=== PATIENT | male | born 1975 | race African-American/Black ===

== ENCOUNTER 2017-05-01 01:24 | Emergency (ER) | payer OTHER ==
[2017-05-01] MEDS: NS 1,000 ML IV (02:48)
[2017-05-01] MEDS: KETOROLAC 30 MG/ML VIAL (J1885) IV (02:49)
[2017-05-01] MEDS: MORPHINE 4 MG/ML 1ML VIAL (J2270) IV (02:49)
[2017-05-01 02:50] LABS: BASO # 0.1 10^3/uL (0.0-0.2); BASO % 0.6 % (0.0-1.0); EOS # 0.1 10^3/uL (0.0-0.50); EOS % 0.8 % (0.0-3.0); HEMATOCRIT 40.8 % (42.0-52.0); HEMOGLOBIN 13.7 g/dl (14.0-18.0); IMMATURE GRANULOCYTE % 0.2 % (0-3.0); LYMPH # 0.9 10^3/uL (1.5-4.5); LYMPH % 9.2 % (24.0-44.0); MEAN CORPUSCULAR HEMOGLOBIN 30.6 pg (27.0-33.0); MEAN CORPUSCULAR HGB CONC 33.6 g/dl (32.0-36.5); MEAN CORPUSCULAR VOLUME 91.3 fl (80.0-96.0); MONO # 0.7 10^3/uL (0.0-0.8); MONO % 7.5 % (0.0-5.0); NEUTROPHILS # 8.1 10^3/uL (1.8-7.7); NEUTROPHILS % 81.7 % (36.0-66.0); PLATELET COUNT, AUTOMATED 246 10^3/uL (150-450); RED BLOOD COUNT 4.47 10^6/uL (4.30-6.10); RED CELL DISTRIBUTION WIDTH 11.5 % (11.5-14.5); WHITE BLOOD COUNT 9.9 10^3/uL (4.0-10.0)
[2017-05-01 03:15] LABS: ALBUMIN 4.2 GM/DL (3.2-5.2); ALBUMIN/GLOBULIN RATIO 1.31 (1.00-1.93); ALKALINE PHOSPHATASE 122 U/L (45-117); ALT/SGPT 43 U/L (12-78); ANION GAP 8 MEQ/L (8-16); AST/SGOT 36 U/L (7-37); BILIRUBIN,DIRECT 0.1 MG/DL (0.0-0.2); BILIRUBIN,TOTAL 0.5 MG/DL (0.2-1.0); BLOOD UREA NITROGEN 21 MG/DL (7-18); CALCIUM LEVEL 8.7 MG/DL (8.5-10.1); CARBON DIOXIDE LEVEL 26 MEQ/L (21-32); CHLORIDE LEVEL 109 MEQ/L (98-107); CREATININE FOR GFR 1.81 MG/DL (0.70-1.30); GLOMERULAR FILTRATION RATE 53.6 (>60); GLUCOSE, FASTING 114 MG/DL (70-100); LIPASE 205 U/L (73-393); POTASSIUM SERUM 3.9 MEQ/L (3.5-5.1); SODIUM LEVEL 143 MEQ/L (136-145); TOTAL PROTEIN 7.4 GM/DL (6.4-8.2)
[2017-05-01 05:35] LABS: AMORPHOUS SEDIMENT RFX SMALL (NEGATIVE); KETONE, URINE AUTO RFX NEGATIVE (NEGATIVE); LEUKOCYTE ESTERASE UR AUTO RFX NEGATIVE (NEGATIVE); NITRITE, URINE AUTO RFX NEGATIVE (NEGATIVE); RBC, URINE AUTO RFX 61 /HPF (0-3); SPECIFIC GRAVITY UR AUTO RFX 1.019 (1.002-1.035); SQUAM EPITHELIAL CELL UR AURFX 0 /HPF (0-6); WBC, URINE AUTO RFX 2 /HPF (0-3)
[2017-05-01] MEDS: TAMSULOSIN 0.4 MG CAP PO (07:05)
== END 2017-05-01 07:19 | disposition home or self-care (01) ==
LOC: M ED 01:24
DX: N20.1 Calculus of ureter (principal); Z79.899 Other long term (current) drug therapy; Z88.8 Allergy status to other drugs, medicaments and biological substances
CPT/HCPCS: J2270

== ENCOUNTER 2017-05-02 07:53 | Emergency (ER) | payer OTHER ==
[2017-05-02] MEDS: MORPHINE 4 MG/ML 1ML VIAL (J2270) IV ×2 (09:00→10:36)
[2017-05-02 09:27] LABS: BASO # 0.1 10^3/uL (0.0-0.2); BASO % 0.4 % (0.0-1.0); EOS % 0.1 % (0.0-3.0); HEMATOCRIT 40.1 % (42.0-52.0); HEMOGLOBIN 13.4 g/dl (14.0-18.0); IMMATURE GRANULOCYTE % 0.3 % (0-3.0); LYMPH # 1.1 10^3/uL (1.5-4.5); LYMPH % 8.1 % (24.0-44.0); MEAN CORPUSCULAR HEMOGLOBIN 30.7 pg (27.0-33.0); MEAN CORPUSCULAR HGB CONC 33.4 g/dl (32.0-36.5); MEAN CORPUSCULAR VOLUME 91.8 fl (80.0-96.0); MONO # 0.9 10^3/uL (0.0-0.8); MONO % 6.8 % (0.0-5.0); NEUTROPHILS # 11.4 10^3/uL (1.8-7.7); NEUTROPHILS % 84.3 % (36.0-66.0); PLATELET COUNT, AUTOMATED 244 10^3/uL (150-450); RED BLOOD COUNT 4.37 10^6/uL (4.30-6.10); RED CELL DISTRIBUTION WIDTH 11.3 % (11.5-14.5); WHITE BLOOD COUNT 13.5 10^3/uL (4.0-10.0)
[2017-05-02 09:43] LABS: APPEARANCE, URINE CLEAR (CLEAR); BACTERIA, URINE AUTO NEGATIVE (NEGATIVE); BILIRUBIN, URINE AUTO NEGATIVE (NEGATIVE); BLOOD, URINE BLOOD 3+ (NEGATIVE); COLOR, URINE YELLOW (YELLOW); GLUCOSE, URINE (UA) AUTO NEGATIVE (NEGATIVE); KETONE, URINE AUTO NEGATIVE (NEGATIVE); LEUKOCYTE ESTERASE, URINE AUTO NEGATIVE (NEGATIVE); MUCUS, URINE SMALL (NEGATIVE); NITRITE, URINE AUTO NEGATIVE (NEGATIVE); PROTEIN, URINE AUTO NEGATIVE (NEGATIVE); RBC, URINE AUTO 35 /HPF (0-3); SPECIFIC GRAVITY URINE AUTO 1.013 (1.002-1.035); SQUAMOUS EPITHELIAL CELL UR AU 0 /HPF (0-6); UROBILINOGEN, URINE AUTO 0.2 mg/dL (0.0-2.0); WBC, URINE AUTO 3 /HPF (0-3)
[2017-05-02 09:44] LABS: ANION GAP 9 MEQ/L (8-16); BLOOD UREA NITROGEN 18 MG/DL (7-18); CALCIUM LEVEL 8.7 MG/DL (8.5-10.1); CARBON DIOXIDE LEVEL 23 MEQ/L (21-32); CHLORIDE LEVEL 108 MEQ/L (98-107); CREATININE FOR GFR 1.97 MG/DL (0.70-1.30); GLOMERULAR FILTRATION RATE 48.6 (>60); GLUCOSE, FASTING 105 MG/DL (70-100); POTASSIUM SERUM 4.1 MEQ/L (3.5-5.1); SODIUM LEVEL 140 MEQ/L (136-145)
[2017-05-02] MEDS: NS 1,000 ML IV (12:00)
[2017-05-02] MEDS: HYDROmorphone HCL 1 MG/ML SYRINGE (J1170) IV (12:42)
== END 2017-05-02 13:28 | disposition home or self-care (01) ==
LOC: M ED 07:53
DX: N20.1 Calculus of ureter (principal); I10 Essential (primary) hypertension; K59.00 Constipation, unspecified; D64.9 Anemia, unspecified; N17.9 Acute kidney failure, unspecified; E78.5 Hyperlipidemia, unspecified; R56.9 Unspecified convulsions; G47.30 Sleep apnea, unspecified; F43.10 Post-traumatic stress disorder, unspecified; Z79.899 Other long term (current) drug therapy; Z88.8 Allergy status to other drugs, medicaments and biological substances
CPT/HCPCS: J1170

== ENCOUNTER 2018-11-24 15:49 | Emergency (ER) | payer OTHER ==
[~2018-11-24] VITALS: Ht 188 cm; Wt 182.7 kg
[~2018-11-24 15:49] MED LIST: ATOR40TA75 PO; BUSP15TA47 PO; CHLO125TA; CHOL100013; DILA8TAB5 PO; FLOM0.4C39 PO; FLUO20CA19; HYDR1TAB33 GT; KEFL500C17 PO; MICA80TA; MIRT45TA4; NAPR-885 PO; NIFE30TA50; PERC5TAB12 PO; QUET5TAB; TOPI200T7; TRAM-533
[2018-11-24] MEDS ORDERED: CLON1TAB17 PO (16:14)
[2018-11-24] MEDS ORDERED: APAP325T4 PO (16:14)
[2018-11-24] MEDS ORDERED: ATOR1TAB19 PO (16:14)
[2018-11-24] MEDS ORDERED: FLUO20CA8 PO (16:14)
[2018-11-24] MEDS ORDERED: GEOD40CA13 PO (16:15)
[2018-11-24] MEDS ORDERED: MIRT1TAB16 PO (16:15)
[2018-11-24 16:51] LABS: HEMATOCRIT 44.5 % (42.0-52.0); HEMOGLOBIN 14.5 g/dl (13.5-17.5); MEAN CORPUSCULAR HEMOGLOBIN 31.8 pg (27.0-33.0); MEAN CORPUSCULAR HGB CONC 32.6 g/dl (32.0-36.5); MEAN CORPUSCULAR VOLUME 97.6 fl (80.0-96.0); PLATELET COUNT, AUTOMATED 267 10^3/uL (150-450); RED BLOOD COUNT 4.56 10^6/uL (4.30-6.10); WHITE BLOOD COUNT 6.7 10^3/uL (4.0-10.0)
[2018-11-24] MEDS ORDERED: TOPI200T7 PO (16:54)
[2018-11-24 17:11] LABS: ACETAMINOPHEN LEVEL < 2.0 UG/ML (10.0-30.0); ALBUMIN 3.7 GM/DL (3.2-5.2); ALT/SGPT 57 U/L (12-78); BILIRUBIN,DIRECT 0.1 MG/DL (0.0-0.2); BILIRUBIN,TOTAL 0.4 MG/DL (0.2-1.0); BLOOD UREA NITROGEN 12 MG/DL (7-18); CALCIUM LEVEL 8.7 MG/DL (8.5-10.1); CARBON DIOXIDE LEVEL 20 MEQ/L (21-32); CHLORIDE LEVEL 114 MEQ/L (98-107); CREATININE FOR GFR 1.32 MG/DL (0.70-1.30); ETHYL ALCOHOL (ETHANOL) < 0.003 % (0.000-0.010); GLOMERULAR FILTRATION RATE > 60.0 (>60); GLUCOSE, FASTING 116 MG/DL (70-100); POTASSIUM SERUM 4.2 MEQ/L (3.5-5.1); SALICYLATE LEVEL < 1.7 MG/DL (5.0-30.0); SODIUM LEVEL 141 MEQ/L (136-145); THYROID STIMULATING HORMONE 0.993 uIU/ML (0.358-3.740); TOTAL PROTEIN 7.2 GM/DL (6.4-8.2)
[2018-11-24 18:03] LABS: AMPHETAMINES LEVEL URINE NEGATIVE (NEGATIVE); BARBITURATES URINE NEGATIVE (NEGATIVE); BENZODIAZEPINES URINE NEGATIVE (NEGATIVE); CANNABINOIDS URINE NEGATIVE (NEGATIVE); COCAINE METABOLITE URINE NEGATIVE (NEGATIVE); METHADONE URINE NEGATIVE (NEGATIVE); OPIATES URINE NEGATIVE (NEGATIVE); PHENCYCLIDINE URINE NEGATIVE (NEGATIVE)
[2018-11-24] MEDS ORDERED: traMADol 50 MG TAB PO ONE (19:45)
[2018-11-24] MEDS ORDERED: MIRTAZAPINE 15 MG TAB PO SCH (21:00)
[2018-11-24] MEDS ORDERED: TOPIRAMATE (TopAMAX) 100 MG TAB PO ONE (23:30)
[2018-11-24] MEDS ORDERED: clonazePAM 1 MG TAB PO ONE (23:30)
[2018-11-25] MEDS ORDERED: ZIPR60CA11 PO (01:19)
[2018-11-25] MEDS ORDERED: REME30TA PO (01:19)
[2018-11-25] MEDS ORDERED: FLUO20CA19 PO (01:19)
[2018-11-25] MEDS ORDERED: TRAM50TA2 PO (01:19)
[2018-11-25] MEDS ORDERED: CLON1TAB8 PO (01:19)
[2018-11-25] MEDS ORDERED: ACET-897 PO (01:19)
[2018-11-25] MEDS ORDERED: TOPI200T7 PO (01:19)
[2018-11-25] MEDS ORDERED: ZOLP10TA2 PO (01:19)
[2018-11-25] MEDS ORDERED: D-10TAB2 PO (01:19)
[2018-11-25] MEDS ORDERED: METAL LOCK LOOP XX ONE ×2 (02:07→04:04)
[2018-11-25] MEDS ORDERED: clonazePAM 1 MG TAB PO ONE (08:15)
[2018-11-25] MEDS ORDERED: ACETAMINOPHEN TAB 650MG DOSE (2X325MG) PO ONE (08:15)
[2018-11-25] MEDS ORDERED: TOPIRAMATE (TopAMAX) 25 MG TAB PO ONE (08:15)
[2018-11-25] MEDS ORDERED: ZIPRASIDONE 20MG CAPSULE (GEODON) PO ONE (08:15)
[2018-11-25] MEDS ORDERED: traMADol 50 MG TAB PO ONE (08:15)
[2018-11-25 11:32] VITALS: BP 140/87
--- NOTE | 2018-11-25 19:45 | ECGEPIP ---
[facility] - ED Test Date: 2018-11-24 Pat Name: ROSALIO DICKINSON Department: Room: - Gender: Male Lending Advisor: VIDYA : [id number] Requested By: César Collins Order Number: [id number] Reading MD: César Collins Measurements Intervals [place] Rate: 88 P: 59 GA: 172 QRS: 69 QRSD: 87 T: 61 QT: 301 QTc: 364 Interpretive Statements SINUS RHYTHM NONSPECIFIC T-WAVE ABNORMALITY NO PRIOR ECG FOR COMPARISON Electronically Signed on 11-25-2018 19:45:28 EDT by César Collins
== END 2018-11-25 11:34 ==
LOC: M ED 15:49
DX: R44.0 Auditory hallucinations (principal); F41.9 Anxiety disorder, unspecified; F32.9 Major depressive disorder, single episode, unspecified; F43.10 Post-traumatic stress disorder, unspecified; R51 Headache; I10 Essential (primary) hypertension; G47.30 Sleep apnea, unspecified; Z79.899 Other long term (current) drug therapy; Z88.8 Allergy status to other drugs, medicaments and biological substances
CPT/HCPCS: 80048; 80076; 80307; 84443; 85027; 93005; 99285; G0480

== ENCOUNTER → 2019-09-15 | Outpatient (CLI) | payer OTHER ==
[~2019-09-15] MED LIST changes: +ACET-897 PO; +APAP325T4 PO; +ATOR1TAB19 PO; +CLON1TAB17 PO; +CLON1TAB8 PO; +D-10TAB2 PO; -FLUO20CA19; +FLUO20CA20 PO; +FLUO20CA22; +FLUO20CA22 PO; +GEOD40CA13 PO; +MIRT1TAB16 PO; +NAPR-837 PO; +PREG50CA PO; +REME30TA PO; +TOPI200T7 PO; +TRAM50TA2 PO; +ZIPR60CA11 PO; +ZOLP10TA2 PO
--- NOTE | 2019-10-05 10:48 | REP ---
ABDOMINAL RIGHT UPPER QUADRANT ULTRASOUND TO RULE OUT ELEVATED LIVER FUNCTION TESTS Delay in reporting results from malfunction of the hospital computer system as the result of a malware attack. COMPARISON: Abdomen and pelvis CT dated 05/01/2017. FINDINGS: There is no cholelithiasis, gallbladder wall thickening, or pericholecystic fluid seen. No intrahepatic or extrahepatic biliary duct dilatation. The common biliary duct measures 5.5 mm in diameter. The hepatic parenchyma is heterogeneous compatible with hepatosteatosis. There are no hepatic masses. The visualized areas of the pancreatic body and head are unremarkable. The tail is obscured by bowel gas. The right kidney is normal in size measuring 13.6 x 6.3 x 6.1 cm. There is no right renal mass or cyst. There is an indentation of the renal cortex in the upper pole, likely a cortical scar. No right renal calculus is identified. There is no hydronephrosis. IMPRESSION: Heterogeneous hepatic parenchyma compatible with hepatosteatosis. There are no hepatic masses or cysts. There is no biliary duct dilatation. The pancreatic tail is obscured by bowel gas. Probable renal cortical scar in the right renal upper pole. Otherwise, negative abdominal right upper quadrant ultrasound. MTDD
== END ==
LOC: M WHC 17:08
PROVIDERS: ATTEND Nurse Practitioner Family
DX: R94.5 Abnormal results of liver function studies (principal)

== ENCOUNTER 2019-10-22 09:43 | Emergency (ER) | payer OTHER, SELFPAY ==
[~2019-10-22] VITALS: Ht 193 cm; Wt 175.1 kg
[~2019-10-22 09:43] MED LIST changes: -NAPR-837 PO; -PREG50CA PO
[2019-10-22] MEDS ORDERED: NAPR-837 PO (10:08)
[2019-10-22] MEDS ORDERED: CLON1TAB17 PO (10:09)
[2019-10-22] MEDS ORDERED: PREG50CA PO (10:12)
[2019-10-22 10:42] VITALS: BP 126/78
== END 2019-10-22 10:50 | disposition home or self-care (01) ==
LOC: M ED 09:43
DX: Z76.0 Encounter for issue of repeat prescription (principal); F43.10 Post-traumatic stress disorder, unspecified; G89.29 Other chronic pain; M25.569 Pain in unspecified knee; M25.519 Pain in unspecified shoulder; Z79.899 Other long term (current) drug therapy